=== PATIENT | female | born 1940 | race Caucasian/White ===

== ENCOUNTER → 2017-05-15 | Outpatient (CLI) | payer MEDICARE ==
[~2017-05-15] MED LIST: CARDIZEM120 MG PO; HCTZ/LISINOPRIL1 TA3 PO; KEFLEX 500MG.500 MG PO; KEFLEX500 M1 PO; LEVOTHYROXIN0.137 M1 PO; LOVASTATIN10 MG PO; ZYVOX600 MG PO
[2017-05-15 13:25] LABS: BUN 22 mg/dL (7-18); GFR (ESTIMATED) 61 ML/MIN (59-)
== END ==
LOC: LAB 11:09
PROVIDERS: Internal Medicine Cardiovascular Disease
DX: I50.9 Heart failure, unspecified (principal); I50.30 Unspecified diastolic (congestive) heart failure; I27.0 Primary pulmonary hypertension

== ENCOUNTER → 2017-06-06 | Outpatient (CLI) | payer MEDICARE ==
[2017-06-06 15:52] LABS: LYMPH # 2.1 K/mm3 (0.7-4.5); LYMPH % 27.6 % (10-50.0)
[2017-06-06 15:56] LABS: HEMOGLOBIN 13.7 g/dL (12.2-16.2)
[2017-06-06 17:31] LABS: BUN 25 mg/dL (7-18)
[2017-06-06 17:32] LABS: GFR (ESTIMATED) 61 ML/MIN (59-)
--- NOTE | 2017-06-07 10:05 | RADIOLOGY REPORT PS360 ---
MRI-BRAIN W/O HISTORY: MEMORY LOSS ORDERING PHYSICIAN: BARAK SCANLONTOVA PATIENT AGE: 77 years COMPARISON: None TECHNIQUE: Standard multiplanar multiecho sequences are performed without contrast. FINDINGS: No midline shift, mass effect, intracranial hemorrhage, hydrocephalus, or acute infarction evident. No abnormal areas of restricted diffusion. The cerebellopontine angle, cerebellum, and brainstem are unremarkable. There is some deformity of the beto on the left with some flattening of the beto and slight increased T2 signal and decreased T1 signal which could be due to an old area of ischemic change. On the sagittal images there is a linear area of increased T2 signal in this region. A small venous malformation is considered. Post enhanced study may be of further value for confirmation of clinically warranted. Small cystic area is present in the right temporal lobe anteriorly at 5 mm nonspecific. There is mild periventricular T2 hyperintense density. No significant atrophy for patient's stated age periventricular ischemic gliotic changes are only mild. No mastoid effusion or sinus air-fluid level. IMPRESSION: 1. No definite acute finding. 2. Mild periventricular ischemic gliotic changes. 3. Nonspecific increased T2 signal of the beto on the left. There may be a small venous malformation in this region. This may be better evaluated with post enhanced exam as clinically warranted.
[2017-06-08 08:40] LABS: Rapid Plasma Reagin, Quant Non Reactive (NonRea<1:1)
[2017-06-08 09:42] LABS: Folate (Folic Acid) >20.0 ng/mL (>3.0); Vitamin B12 89 pg/mL (211-946)
== END ==
LOC: RAD 05-30 14:00
PROVIDERS: Specialist
DX: R41.3 Other amnesia (principal)

== ENCOUNTER → 2017-07-17 | Outpatient (CLI) | payer MEDICARE ==
[2017-07-17 18:58] LABS: HEMOGLOBIN 13.4 g/dL (12.2-16.2); LYMPH # 1.9 K/mm3 (0.7-4.5); LYMPH % 20.4 % (10-50.0)
[2017-07-17 20:42] LABS: BUN 29 mg/dL (7-18)
[2017-07-17 20:43] LABS: GFR (ESTIMATED) 48 ML/MIN (59-)
[2017-07-19 09:38] LABS: Folate (Folic Acid) >20.0 ng/mL (>3.0); Vitamin B12 >2000 pg/mL (211-946)
== END ==
LOC: LAB 17:57
PROVIDERS: Physician Assistant
DX: I10 Essential (primary) hypertension (principal); E03.9 Hypothyroidism, unspecified; E53.8 Deficiency of other specified B group vitamins; E55.9 Vitamin D deficiency, unspecified